=== PATIENT | female | born 1945 | race Caucasian/White ===

== ENCOUNTER 2016-06-23 01:53 | Inpatient (IN) | payer OTHER ==
[2016-06-23] VITALS (11 sets, daily range): BP systolic 90–202; BP diastolic 37–106
[~2016-06-23] VITALS: Ht 167.6 cm; Wt 90.3 kg
[~2016-06-23 01:53] MED LIST: ETOMIDATE (2MG/ML) 20ML VIAL IV ONE; SUCCINYLCHOLINE CHLORIDE 20 MG/ML 10ML VIAL IV ONE
[2016-06-23] MEDS ORDERED: MIDAZOLAM DRIP 100 mg/100mL NS 100 ML IV ONE (01:59)
[2016-06-23 02:15] LABS: Basophils # (auto) 0.1 uL; Basophils % (auto) 0.5 % (0.0-2.0); DEFINITIVE VIEW TRANSMISSION; Eosinophils # (auto) 0.2 uL; Lymphocytes # (auto) 6.5 uL; Lymphocytes % (auto) 33.6 % (10.0-50.0); Mean Corpuscular Hemoglobin 30.6 pg (28.0-32.0); Mean Corpuscular Hgb Conc. 31.3 g/dL (32.0-36.0); Mean Corpuscular Volume 97.8 fL (80.0-100.0); Mean Platelet Volume 12.8 fL (7.4-10.4); Monocytes # (auto) 0.6 uL; Monocytes % (auto) 2.9 % (0.0-12.0); Platelet Count (auto) 218 10^3/uL (140-450); SUSPECT VIEW TRANSMISSION; White Blood Cell 19.3 10^3/uL (4.4-10.8)
[2016-06-23 02:21] LABS: Urine Bilirubin Negative (Negative); Urine Blood TRACE /uL (Negative); Urine Color Colorless (Yellow); Urine Glucose TRACE mg/dL (Normal); Urine Ketone Negative (Negative); Urine Nitrite Negative (Negative); Urine RBC 12 /hpf (0 - 4); Urine Squamous Epithelial Cell FEW /hpf (<5); Urine Urobilinogen Normal (Negative); Urine pH 7.5 (5.0-8.0)
[2016-06-23 02:28] LABS: INR 0.98 (0.9-1.15); Partial Thromboplastin Time 25.1 sec (22.64-33.71); Prothrombin Time 10.1 sec (9.37-12.3)
[2016-06-23] MEDS ORDERED: SUCCINYLCHOLINE CHLORIDE 20 MG/ML 10ML VIAL IV ONE (02:30)
[2016-06-23] MEDS ORDERED: ETOMIDATE (2MG/ML) 20ML VIAL IV ONE (02:30)
[2016-06-23] MEDS ORDERED: MIDAZOLAM DRIP 100 mg/100mL NS 100 ML IV SCH ×2 (02:30→03:15)
[2016-06-23 02:38] LABS: Albumin 3.4 g/dL (3.4-5.0); BUN/Creatinine Ratio 16.6; Calcium 8.5 mg/dL (8.5-10.1); Potassium 3.8 mmol/L (3.5-5.1)
[2016-06-23 02:40] LABS: Bilirubin, Total 0.2 mg/dL (0.2-1.0); Total Protein 7.9 g/dL (6.4-8.2)
[2016-06-23] MEDS ORDERED: FUROSEMIDE 40 MG/4 ML VIAL IV ONE (03:30)
[2016-06-23] MEDS ORDERED: SODIUM BICARBONATE 8.4 % INJ 50ML VIAL IV ONE (03:30)
[2016-06-23] MEDS ORDERED: NITROGLYCERIN 2% OINT 1GM PKG TD ONE (03:30)
[2016-06-23 04:17] LABS: Temperature: 21.1 C (20.0-25.0)
[2016-06-23] MEDS ORDERED: InsuLIN REG 1unit/0.01ml Soln (100units/ml) SC ONE (05:30)
[2016-06-23] MEDS ORDERED: SIME80CH6 PO (06:19)
[2016-06-23] MEDS ORDERED: COLCPOW2 PO (06:22)
[2016-06-23] MEDS ORDERED: GABA-494 PO (06:22)
[2016-06-23] MEDS ORDERED: LEVO125T6 PO (06:23)
[2016-06-23] MEDS ORDERED: NAPR-476 PO (06:23)
[2016-06-23] MEDS ORDERED: DEXTROSE (50%) 50ML SYRG IV PRN (09:15)
[2016-06-23] MEDS ORDERED: ONDANSETRON HCL 4 MG/2 ML VIAL IV PRN (09:30)
[2016-06-23] MEDS ORDERED: cefTRIAXone 1GM/50ML D5W 50 ML IV ONE (09:30)
[2016-06-23] MEDS ORDERED: NITROGLYCERIN 0.4 MG SL TAB SL PRN (09:30)
[2016-06-23] MEDS ORDERED: VANCOMYCIN PER PHARMACY 0 MG IV SCH (09:30)
[2016-06-23] MEDS ORDERED: MORPHINE SULF INJ 2 MG/ML SYRINGE 1ML IV PRN (09:30)
[2016-06-23] MEDS ORDERED: ENOXAPARIN SOD 40 MG/0.4 ML SYRINGE SC SCH (10:00)
[2016-06-23] MEDS ORDERED: FAMOTIDINE (10MG/ML) 2ML VL IV SCH (10:00)
[2016-06-23] MEDS ORDERED: PANTOPRAZOLE SODIUM 40 MG/10 ML VIAL IV SCH (10:00)
[2016-06-23] MEDS: SODIUM CHLORIDE 0.9% 1,000 ML IV SCH ×2 (10:01→11:55)
[2016-06-23] MEDS: NOREPINEPHRINE BITARTRATE 250 ML IV ONE ×2 (11:17→11:32)
[2016-06-23] MEDS: NOREPINEPHRINE BITARTRATE 32 MG in D5W 5% 218 ML IV SCH (11:36)
[2016-06-23] MEDS: VANCOMYCIN 1GM/250ML D5W 250 ML IV SCH (11:48)
[2016-06-23] MEDS: ACCU-CHEK COMFORT CURVE STRIP VI SCH ×2 (11:55→18:21)
[2016-06-23] MEDS: InsuLIN REG 1unit/0.01ml Soln (100units/ml) SC SCH ×2 (11:56→18:00)
[2016-06-23] MEDS ORDERED: DOPamine 1600MCG/ML 250 ML IV SCH (12:45)
[2016-06-23] MEDS: ACETAMINOPHEN 650 MG RECT SUPP PR PRN (13:28)
[2016-06-23] MEDS ORDERED: FUROSEMIDE 20 MG/2 ML VIAL IV ONE (17:00)
[2016-06-23 18:02] LABS: Hematocrit 40.8 % (36.0-46.0); Hemoglobin 13.3 g/dL (12.2-16.2)
[2016-06-23] MEDS: MIDAZOLAM DRIP 100 mg/100mL NS 100 ML IV SCH (20:04)
[2016-06-23] MEDS: PANTOPRAZOLE SODIUM 40 MG/10 ML VIAL IV SCH (22:11)
[2016-06-24] VITALS (12 sets, daily range): BP systolic 97–161; BP diastolic 40–79
[2016-06-24] MEDS: ACCU-CHEK COMFORT CURVE STRIP VI SCH ×4 (00:11→18:10)
[2016-06-24] MEDS: InsuLIN REG 1unit/0.01ml Soln (100units/ml) SC SCH ×4 (00:14→18:12)
[2016-06-24 00:32] LABS: Hematocrit 40.8 % (36.0-46.0); Hemoglobin 13.1 g/dL (12.2-16.2)
[2016-06-24] MEDS: MIDAZOLAM DRIP 100 mg/100mL NS 100 ML IV SCH ×5 (02:35→22:21)
[2016-06-24] MEDS ORDERED: NOREPINEPHRINE BITARTRATE 250 ML IV ONE (02:35)
[2016-06-24] MEDS: NOREPINEPHRINE BITARTRATE 32 MG in D5W 5% 218 ML IV SCH (02:46)
[2016-06-24 04:11] LABS: Basophils # (auto) 0 uL; Basophils % (auto) 0.1 % (0.0-2.0); Eosinophils # (auto) 0 uL; Hematocrit 39.4 % (36.0-46.0); Hemoglobin 12.9 g/dL (12.2-16.2); Lymphocytes # (auto) 1.7 uL; Lymphocytes % (auto) 8.1 % (10.0-50.0); Mean Corpuscular Hgb Conc. 32.7 g/dL (32.0-36.0); Mean Corpuscular Volume 94.8 fL (80.0-100.0); Mean Platelet Volume 12.4 fL (7.4-10.4); Monocytes # (auto) 0.6 uL; Neutrophils # (auto) 19.1 uL; Neutrophils % (auto) 88.8 % (37.0-80.0); Platelet Count (auto) 172 10^3/uL (140-450); Red Cell Distribution Width 16.5 % (11.6-16.0); White Blood Cell 21.5 10^3/uL (4.4-10.8)
[2016-06-24 04:28] LABS: Albumin 2.7 g/dL (3.4-5.0); Bilirubin, Total 0.5 mg/dL (0.2-1.0); Calcium 8.1 mg/dL (8.5-10.1); Potassium 3.5 mmol/L (3.5-5.1); Total Protein 6.7 g/dL (6.4-8.2)
[2016-06-24] MEDS ORDERED: MIDAZOLAM HCL 5 MG/ML-1ML VIAL ONE (08:30)
[2016-06-24] MEDS ORDERED: fentaNYL CITRATE 100 MCG/2 ML VL ONE (08:30)
[2016-06-24] MEDS ORDERED: LIDOCAINE VISCOUS 2% 15ML UD ONE (08:30)
[2016-06-24] MEDS ORDERED: diphenhdrAMINE HCL 50 MG/1 ML VL ONE (08:30)
[2016-06-24] MEDS ORDERED: SODIUM CHLORIDE LOCK 0 ML ONE (08:30)
[2016-06-24] MEDS ORDERED: cefTRIAXone 1GM/50ML D5W 50 ML IV SCH (09:00)
[2016-06-24] MEDS: PROPOFOL 100 ML IV SCH (09:45)
[2016-06-24] MEDS: PANTOPRAZOLE SODIUM 40 MG/10 ML VIAL IV SCH ×2 (10:54→22:18)
[2016-06-24 11:53] LABS: Hematocrit 36.3 % (36.0-46.0); Hemoglobin 11.9 g/dL (12.2-16.2)
[2016-06-24] MEDS: VANCOMYCIN 1GM/250ML D5W 250 ML IV SCH (12:01)
[2016-06-24] MEDS ORDERED: DOPamine 1600MCG/ML 250 ML IV SCH (12:45)
[2016-06-24] MEDS ORDERED: DOPamine 1600MCG/ML 250 ML IV ONE (13:27)
[2016-06-24] MEDS: DOPamine 3200MCG/ML 250 ML IV SCH ×2 (14:25→14:36)
[2016-06-24] MEDS: SODIUM CHLORIDE 0.9% 1,000 ML IV SCH (14:26)
[2016-06-24] MEDS: PIPERACILLIN-TAZOB 3.375GM 100 ML IV SCH ×2 (16:00→22:02)
[2016-06-24 17:58] LABS: Hematocrit 35.2 % (36.0-46.0); Hemoglobin 11.5 g/dL (12.2-16.2)
[2016-06-24] MEDS ORDERED: LIDOCAINE 1% HCL (LOCAL ANESTH.) INJ 20ML MDV ID ONE (20:45)
[2016-06-24] MEDS: SODIUM CHLOR 0.9% PF (SALINE LOCK) 10ML VIAL IV SCH (22:18)
[2016-06-25] VITALS (84 sets, daily range): BP systolic 124–188; BP diastolic 47–97
[2016-06-25 01:00] LABS: Hematocrit 32.4 % (36.0-46.0); Hemoglobin 10.8 g/dL (12.2-16.2)
[2016-06-25] MEDS: InsuLIN REG 1unit/0.01ml Soln (100units/ml) SC SCH ×4 (02:11→18:00)
[2016-06-25] MEDS: ACCU-CHEK COMFORT CURVE STRIP VI SCH ×4 (02:11→18:22)
[2016-06-25] MEDS: SODIUM CHLORIDE 0.9% 1,000 ML IV SCH (02:36)
[2016-06-25] MEDS: PIPERACILLIN-TAZOB 3.375GM 100 ML IV SCH ×4 (03:00→21:27)
[2016-06-25 03:56] LABS: Hematocrit 31.5 % (36.0-46.0); Hemoglobin 10.4 g/dL (12.2-16.2)
[2016-06-25 03:58] LABS: Basophils # (auto) 0 uL; Basophils % (auto) 0.2 % (0.0-2.0); Eosinophils # (auto) 0.1 uL; Eosinophils % (auto) 0.8 % (0.0-7.0); Hematocrit 31.2 % (36.0-46.0); Hemoglobin 10.3 g/dL (12.2-16.2); Lymphocytes # (auto) 1.2 uL; Mean Corpuscular Hemoglobin 31.1 pg (28.0-32.0); Mean Corpuscular Hgb Conc. 32.8 g/dL (32.0-36.0); Mean Corpuscular Volume 94.8 fL (80.0-100.0); Mean Platelet Volume 11.6 fL (7.4-10.4); Monocytes # (auto) 0.3 uL; Monocytes % (auto) 2.5 % (0.0-12.0); Neutrophils # (auto) 10.1 uL; Neutrophils % (auto) 86.5 % (37.0-80.0); Platelet Count (auto) 122 10^3/uL (140-450); Red Cell Distribution Width 17.1 % (11.6-16.0); White Blood Cell 11.7 10^3/uL (4.4-10.8)
[2016-06-25 04:15] LABS: BUN/Creatinine Ratio 23.4; Calcium 7.7 mg/dL (8.5-10.1); Magnesium 1.8 mg/dL (1.6-2.6); Potassium 3.1 mmol/L (3.5-5.1)
[2016-06-25] MEDS ORDERED: Isosource 1.5 Cal 1 Liter GT SCH (10:00)
[2016-06-25] MEDS ORDERED: FUROSEMIDE 40 MG/4 ML VIAL IV ONE (10:00)
[2016-06-25] MEDS: SODIUM CHLOR 0.9% PF (SALINE LOCK) 10ML VIAL IV SCH ×2 (10:00→21:27)
[2016-06-25] MEDS ORDERED: POTASSIUM CHL 10% (20 MEQ/15ML) ORAL SOLN GT ONE (10:15)
[2016-06-25] MEDS: PANTOPRAZOLE SODIUM 40 MG/10 ML VIAL IV SCH ×2 (11:09→21:26)
[2016-06-25] MEDS: VANCOMYCIN 1GM/250ML D5W 250 ML IV SCH (11:13)
[2016-06-25] MEDS: NOREPINEPHRINE BITARTRATE 32 MG in D5W 5% 218 ML IV SCH (11:45)
[2016-06-25] MEDS: ASPirin 81 mg TAB PO SCH (14:05)
[2016-06-25] MEDS: ENOXAPARIN SOD 100 MG/1 ML SYRINGE SC SCH ×2 (14:08→21:27)
[2016-06-25 14:14] LABS: Hematocrit 32.6 % (36.0-46.0); Hemoglobin 10.4 g/dL (12.2-16.2)
[2016-06-25] MEDS: POTASSIUM CHL 10% (20 MEQ/15ML) ORAL SOLN GT SCH (21:27)
[2016-06-25] MEDS: ATORVASTATIN 20 MG TAB PO SCH (21:27)
[2016-06-25] MEDS: ACETAMINOPHEN 650 MG RECT SUPP PR PRN (21:57)
[2016-06-26] VITALS (105 sets, daily range): BP systolic 112–185; BP diastolic 44–82
[2016-06-26] MEDS: InsuLIN REG 1unit/0.01ml Soln (100units/ml) SC SCH ×4 (00:12→17:35)
[2016-06-26] MEDS: ACCU-CHEK COMFORT CURVE STRIP VI SCH ×4 (00:14→17:34)
[2016-06-26 00:56] LABS: Hematocrit 33.1 % (36.0-46.0); Hemoglobin 11.1 g/dL (12.2-16.2)
[2016-06-26] MEDS: PIPERACILLIN-TAZOB 3.375GM 100 ML IV SCH ×4 (03:00→21:28)
[2016-06-26] MEDS: SODIUM CHLORIDE 0.9% 1,000 ML IV SCH ×2 (03:29→13:18)
[2016-06-26] MEDS: PROPOFOL 100 ML IV SCH ×2 (04:29→09:15)
[2016-06-26 05:16] LABS: Basophils # (auto) 0 uL; Basophils % (auto) 0.2 % (0.0-2.0); Eosinophils # (auto) 0.2 uL; Eosinophils % (auto) 1.1 % (0.0-7.0); Hematocrit 34.2 % (36.0-46.0); Hemoglobin 11.4 g/dL (12.2-16.2); Lymphocytes # (auto) 0.9 uL; Lymphocytes % (auto) 6.9 % (10.0-50.0); Mean Corpuscular Hemoglobin 31.7 pg (28.0-32.0); Mean Corpuscular Hgb Conc. 33.2 g/dL (32.0-36.0); Mean Corpuscular Volume 95.6 fL (80.0-100.0); Monocytes # (auto) 0.4 uL; Monocytes % (auto) 3.2 % (0.0-12.0); Neutrophils % (auto) 88.6 % (37.0-80.0); Platelet Count (auto) 124 10^3/uL (140-450); Red Cell Distribution Width 17.2 % (11.6-16.0); White Blood Cell 13.6 10^3/uL (4.4-10.8)
[2016-06-26 05:35] LABS: Albumin 2.6 g/dL (3.4-5.0); BUN/Creatinine Ratio 20.1; Calcium 8.4 mg/dL (8.5-10.1); Potassium 3.5 mmol/L (3.5-5.1)
[2016-06-26 05:38] LABS: Bilirubin, Total 0.9 mg/dL (0.2-1.0); Total Protein 7.2 g/dL (6.4-8.2)
[2016-06-26] MEDS: MIDAZOLAM DRIP 100 mg/100mL NS 100 ML IV SCH (09:15)
[2016-06-26] MEDS: MORPHINE SULF INJ 2 MG/ML SYRINGE 1ML IV PRN ×2 (09:37→23:19)
[2016-06-26] MEDS: POTASSIUM CHL 10% (20 MEQ/15ML) ORAL SOLN GT SCH ×2 (09:49→21:28)
[2016-06-26] MEDS: ASPirin 81 mg TAB PO SCH (09:50)
[2016-06-26] MEDS: ENOXAPARIN SOD 100 MG/1 ML SYRINGE SC SCH ×2 (09:50→21:30)
[2016-06-26] MEDS: PANTOPRAZOLE SODIUM 40 MG/10 ML VIAL IV SCH ×2 (09:50→21:29)
[2016-06-26] MEDS: SODIUM CHLOR 0.9% PF (SALINE LOCK) 10ML VIAL IV SCH ×2 (10:12→21:29)
[2016-06-26 10:42] LABS: Hematocrit 31.9 % (36.0-46.0); Hemoglobin 10.7 g/dL (12.2-16.2)
[2016-06-26] MEDS: VANCOMYCIN 1GM/250ML D5W 250 ML IV SCH (11:29)
[2016-06-26] MEDS: NOREPINEPHRINE BITARTRATE 32 MG in D5W 5% 218 ML IV SCH (11:45)
[2016-06-26] MEDS: ACETAMINOPHEN 650 mg PER 20 mL UD NG PRN ×2 (16:11→23:20)
[2016-06-26 17:56] LABS: Hematocrit 31.7 % (36.0-46.0); Hemoglobin 10.5 g/dL (12.2-16.2)
[2016-06-26] MEDS: DOPamine 3200MCG/ML 250 ML IV SCH ×2 (20:00→21:27)
[2016-06-26] MEDS: ATORVASTATIN 20 MG TAB PO SCH (21:29)
[2016-06-27] VITALS (84 sets, daily range): BP systolic 101–214; BP diastolic 37–105
[2016-06-27 01:14] LABS: Hematocrit 31.5 % (36.0-46.0); Hemoglobin 10.2 g/dL (12.2-16.2)
[2016-06-27] MEDS: PIPERACILLIN-TAZOB 3.375GM 100 ML IV SCH ×4 (02:55→21:20)
[2016-06-27] MEDS: SODIUM CHLORIDE 0.9% 1,000 ML IV SCH (04:29)
[2016-06-27] MEDS: InsuLIN REG 1unit/0.01ml Soln (100units/ml) SC SCH ×5 (06:00→23:47)
[2016-06-27] MEDS: PROPOFOL 100 ML IV SCH (06:18)
[2016-06-27] MEDS: ACCU-CHEK COMFORT CURVE STRIP VI SCH ×5 (06:19→23:47)
[2016-06-27 06:21] LABS: Hematocrit 31.6 % (36.0-46.0); Hemoglobin 10.4 g/dL (12.2-16.2)
[2016-06-27 07:14] LABS: Albumin 2.3 g/dL (3.4-5.0); BUN/Creatinine Ratio 19.3; Calcium 8.2 mg/dL (8.5-10.1); Potassium 3.6 mmol/L (3.5-5.1)
[2016-06-27 07:17] LABS: Bilirubin, Total 0.6 mg/dL (0.2-1.0); Total Protein 6.8 g/dL (6.4-8.2)
[2016-06-27] MEDS: MIDAZOLAM DRIP 100 mg/100mL NS 100 ML IV SCH (09:15)
[2016-06-27] MEDS: ASPirin 81 mg TAB PO SCH (10:00)
[2016-06-27] MEDS: POTASSIUM CHL 10% (20 MEQ/15ML) ORAL SOLN GT SCH ×2 (10:00→21:20)
[2016-06-27] MEDS: SODIUM CHLOR 0.9% PF (SALINE LOCK) 10ML VIAL IV SCH ×2 (11:36→21:22)
[2016-06-27] MEDS: PANTOPRAZOLE SODIUM 40 MG/10 ML VIAL IV SCH ×2 (11:36→21:20)
[2016-06-27] MEDS: VANCOMYCIN 1GM/250ML D5W 250 ML IV SCH (11:37)
[2016-06-27] MEDS: ENOXAPARIN SOD 100 MG/1 ML SYRINGE SC SCH (11:37)
[2016-06-27] MEDS: NOREPINEPHRINE BITARTRATE 32 MG in D5W 5% 218 ML IV SCH (11:38)
[2016-06-27 12:16] LABS: Hematocrit 31.8 % (36.0-46.0); Hemoglobin 10.4 g/dL (12.2-16.2)
[2016-06-27] MEDS: DOPamine 3200MCG/ML 250 ML IV SCH (13:30)
[2016-06-27] MEDS ORDERED: ACETAMINOPHEN 650 mg PER 20 mL UD ONE (17:07)
[2016-06-27] MEDS ORDERED: ACETAMINOPHEN 650 mg PER 20 mL UD GT ONE (17:15)
[2016-06-27] MEDS ORDERED: LORazepam 2MG/ML-1ML VIAL ONE (18:09)
[2016-06-27] MEDS ORDERED: ENALAPRILAT 1.25 MG/ML-1ML VIAL IV PRN (19:15)
[2016-06-27] MEDS: ATORVASTATIN 20 MG TAB PO SCH (21:22)
[2016-06-28] VITALS (85 sets, daily range): BP systolic 108–242; BP diastolic 39–128
[2016-06-28 00:13] LABS: Hematocrit 32.1 % (36.0-46.0); Hemoglobin 10.4 g/dL (12.2-16.2)
[2016-06-28] MEDS: LORazepam 2MG/ML-1ML VIAL IV PRN ×3 (00:17→16:24)
[2016-06-28] MEDS: PIPERACILLIN-TAZOB 3.375GM 100 ML IV SCH ×4 (03:20→21:22)
[2016-06-28 05:40] LABS: Calcium 8.7 mg/dL (8.5-10.1); Potassium 3.7 mmol/L (3.5-5.1)
[2016-06-28 05:41] LABS: INR 1.04 (0.9-1.15); Partial Thromboplastin Time 29.1 sec (22.64-33.71); Prothrombin Time 10.7 sec (9.37-12.3)
[2016-06-28 05:43] LABS: BUN/Creatinine Ratio 18.2
[2016-06-28 05:51] LABS: Hematocrit 32.6 % (36.0-46.0); Hemoglobin 10.6 g/dL (12.2-16.2); Mean Corpuscular Hemoglobin 31.1 pg (28.0-32.0); Mean Corpuscular Hgb Conc. 32.4 g/dL (32.0-36.0); Mean Platelet Volume 9.9 fL (7.4-10.4); Platelet Count (auto) 112 10^3/uL (140-450); Red Cell Distribution Width 15.5 % (11.6-16.0); SUSPECT VIEW TRANSMISSION; White Blood Cell 12.7 10^3/uL (4.4-10.8)
[2016-06-28] MEDS: InsuLIN REG 1unit/0.01ml Soln (100units/ml) SC SCH ×4 (06:00→23:57)
[2016-06-28] MEDS ORDERED: SODIUM CHLORIDE 0.9% 1,000 ML IV SCH (06:00)
[2016-06-28] MEDS: ACCU-CHEK COMFORT CURVE STRIP VI SCH ×4 (06:31→23:57)
[2016-06-28 07:23] LABS: Metamyelocytes % 0; Myelocytes % 0; Promyelocytes % 0; Reactive Lymphocytes 0
[2016-06-28] MEDS ORDERED: LIDOCAINE 2%HCL (LOCAL ANESTH.) INJ 20ML MDV ONE (07:41)
[2016-06-28] MEDS ORDERED: IODIXANOL 320MG/ML 100ML BTL IV ONE (07:52)
[2016-06-28] MEDS ORDERED: MIDAZOLAM HCL 1MG/1ML-2 ML VIAL ONE (08:11)
[2016-06-28] MEDS ORDERED: SODIUM CHL 0.9% 0 ML ONE (08:12)
[2016-06-28] MEDS ORDERED: ANGIOMAX 250 MG VIAL IV ONE (08:12)
[2016-06-28] MEDS ORDERED: fentaNYL CITRATE 100 MCG/2 ML VL ONE (08:12)
[2016-06-28] MEDS ORDERED: EPTIFIBATIDE INJ (2MG/ML) 10ML VIAL IV ONE (08:32)
[2016-06-28 08:33] LABS: Platelet Estimate Decreased; RBC Morphology Normal
[2016-06-28] MEDS ORDERED: hydrALAZINE HCL 20 MG/ML VL ONE (08:39)
[2016-06-28] MEDS: SODIUM CHLOR 0.9% PF (SALINE LOCK) 10ML VIAL IV SCH ×2 (09:53→21:23)
[2016-06-28] MEDS: PANTOPRAZOLE SODIUM 40 MG/10 ML VIAL IV SCH ×2 (09:53→21:22)
[2016-06-28] MEDS: ASPirin 81 mg TAB PO SCH (09:53)
[2016-06-28] MEDS: POTASSIUM CHL 10% (20 MEQ/15ML) ORAL SOLN GT SCH ×2 (09:53→21:22)
[2016-06-28] MEDS: ENALAPRILAT 1.25 MG/ML-1ML VIAL IV PRN (12:15)
[2016-06-28] MEDS: VANCOMYCIN 1GM/250ML D5W 250 ML IV SCH (12:31)
[2016-06-28 12:59] LABS: Hematocrit 32.1 % (36.0-46.0); Hemoglobin 10.6 g/dL (12.2-16.2)
[2016-06-28] MEDS ORDERED: GABAPENTIN 100 MG CAP ONE (16:14)
[2016-06-28] MEDS ORDERED: GABAPENTIN 100 MG CAP PO ONE (16:30)
[2016-06-28] MEDS ORDERED: ACETAMINOPHEN 325 MG RECT SUPP PR ONE (18:02)
[2016-06-28] MEDS ORDERED: ACETAMINOPHEN 650 MG RECT SUPP PR PRN (18:15)
[2016-06-28] MEDS ORDERED: fentaNYL Drip 2500mCg/250mlNS 250 ML IV ONE (18:31)
[2016-06-28] MEDS ORDERED: fentaNYL Drip 2500mCg/250mlNS 250 ML IV SCH (18:31)
[2016-06-28 18:53] LABS: Hematocrit 31.5 % (36.0-46.0); Hemoglobin 10.3 g/dL (12.2-16.2)
[2016-06-28] MEDS: ATORVASTATIN 20 MG TAB PO SCH (21:23)
[2016-06-28] MEDS: GABAPENTIN 100 MG CAP PO SCH (21:23)
[2016-06-29] VITALS (68 sets, daily range): BP systolic 109–189; BP diastolic 45–110
[2016-06-29] MEDS: PIPERACILLIN-TAZOB 3.375GM 100 ML IV SCH ×4 (03:13→22:00)
[2016-06-29 04:15] LABS: Basophils # (auto) 0 uL; Basophils % (auto) 0.3 % (0.0-2.0); Eosinophils # (auto) 0.1 uL; Eosinophils % (auto) 0.6 % (0.0-7.0); Hematocrit 28.6 % (36.0-46.0); Hemoglobin 9.3 g/dL (12.2-16.2); Lymphocytes # (auto) 1.2 uL; Lymphocytes % (auto) 9.4 % (10.0-50.0); Mean Corpuscular Hemoglobin 31.1 pg (28.0-32.0); Mean Corpuscular Hgb Conc. 32.7 g/dL (32.0-36.0); Mean Corpuscular Volume 95.3 fL (80.0-100.0); Mean Platelet Volume 11.6 fL (7.4-10.4); Monocytes # (auto) 0.6 uL; Monocytes % (auto) 4.7 % (0.0-12.0); Neutrophils # (auto) 10.5 uL; Platelet Count (auto) 140 10^3/uL (140-450); Red Cell Distribution Width 16.9 % (11.6-16.0); White Blood Cell 12.4 10^3/uL (4.4-10.8)
[2016-06-29 04:52] LABS: BUN/Creatinine Ratio 17.4; Calcium 8.4 mg/dL (8.5-10.1); Magnesium 2.1 mg/dL (1.6-2.6); Potassium 3.8 mmol/L (3.5-5.1)
[2016-06-29] MEDS: InsuLIN REG 1unit/0.01ml Soln (100units/ml) SC SCH ×4 (06:00→18:30)
[2016-06-29] MEDS: ACCU-CHEK COMFORT CURVE STRIP VI SCH ×3 (06:33→18:22)
[2016-06-29] MEDS: ASPirin 81 mg TAB PO SCH (10:04)
[2016-06-29] MEDS: GABAPENTIN 100 MG CAP PO SCH ×2 (10:04→23:17)
[2016-06-29] MEDS: SODIUM CHLOR 0.9% PF (SALINE LOCK) 10ML VIAL IV SCH ×2 (10:04→23:16)
[2016-06-29] MEDS: PANTOPRAZOLE SODIUM 40 MG/10 ML VIAL IV SCH ×2 (10:04→23:16)
[2016-06-29] MEDS: POTASSIUM CHL 10% (20 MEQ/15ML) ORAL SOLN GT SCH ×2 (10:05→23:15)
[2016-06-29] MEDS: VANCOMYCIN 1GM/250ML D5W 250 ML IV SCH (11:00)
[2016-06-29 11:53] LABS: Hematocrit 30.9 % (36.0-46.0); Hemoglobin 10.1 g/dL (12.2-16.2)
[2016-06-29] MEDS ORDERED: LISINOPRIL 20 MG TAB PO ONE (15:15)
[2016-06-29 19:11] LABS: Hematocrit 31.4 % (36.0-46.0); Hemoglobin 10.4 g/dL (12.2-16.2)
[2016-06-29] MEDS: MORPHINE SULF INJ 2 MG/ML SYRINGE 1ML IV PRN (20:45)
[2016-06-29] MEDS: ATORVASTATIN 20 MG TAB PO SCH (23:17)
[2016-06-29] MEDS: CARVEDILOL 3.125 MG TAB PO SCH (23:17)
[2016-06-30] MEDS: ACCU-CHEK COMFORT CURVE STRIP VI SCH ×5 (00:19→23:37)
[2016-06-30] MEDS: ENALAPRILAT 1.25 MG/ML-1ML VIAL IV PRN ×3 (00:24→23:18)
[2016-06-30 01:56] LABS: Hematocrit 31.5 % (36.0-46.0); Hemoglobin 10.4 g/dL (12.2-16.2)
[2016-06-30] MEDS: PIPERACILLIN-TAZOB 3.375GM 100 ML IV SCH ×2 (03:00→08:42)
[2016-06-30] MEDS: MORPHINE SULF INJ 2 MG/ML SYRINGE 1ML IV PRN ×2 (03:39→19:03)
[2016-06-30 04:00] VITALS: BP 136/59
[2016-06-30] MEDS: InsuLIN REG 1unit/0.01ml Soln (100units/ml) SC SCH ×5 (06:00→23:38)
[2016-06-30 06:48] LABS: Hematocrit 31.9 % (36.0-46.0); Hemoglobin 10.4 g/dL (12.2-16.2)
[2016-06-30 07:08] LABS: BUN/Creatinine Ratio 16.8; Calcium 8.8 mg/dL (8.5-10.1); Potassium 3.8 mmol/L (3.5-5.1)
[2016-06-30 08:00] VITALS: BP 157/59
[2016-06-30] MEDS: PANTOPRAZOLE SODIUM 40 MG/10 ML VIAL IV SCH ×2 (09:55→21:48)
[2016-06-30] MEDS: ASPirin 81 mg TAB PO SCH (09:55)
[2016-06-30] MEDS: LISINOPRIL 20 MG TAB PO SCH (09:56)
[2016-06-30] MEDS: CARVEDILOL 3.125 MG TAB PO SCH ×2 (09:56→21:25)
[2016-06-30] MEDS: GABAPENTIN 100 MG CAP PO SCH ×2 (09:56→21:47)
[2016-06-30] MEDS: SODIUM CHLOR 0.9% PF (SALINE LOCK) 10ML VIAL IV SCH ×2 (09:57→21:56)
[2016-06-30] MEDS: POTASSIUM CHL 10% (20 MEQ/15ML) ORAL SOLN GT SCH (09:57)
[2016-06-30] MEDS: LORazepam 2MG/ML-1ML VIAL IV PRN (12:00)
[2016-06-30 12:17] VITALS: BP 156/65
[2016-06-30 12:35] LABS: Hematocrit 32.3 % (36.0-46.0); Hemoglobin 10.5 g/dL (12.2-16.2)
[2016-06-30] MEDS ORDERED: IBUP-781 PO (13:07)
[2016-06-30] MEDS ORDERED: FURO20TA3 PO (13:07)
[2016-06-30] MEDS ORDERED: [UNRECOGNIZED DRUG - CODE] PO (13:07)
[2016-06-30] MEDS ORDERED: SITA25TA3 PO (13:07)
[2016-06-30] MEDS ORDERED: METF-489 PO (13:07)
[2016-06-30] MEDS ORDERED: CLOP75TA41 PO (13:07)
[2016-06-30] MEDS ORDERED: LISI10TA6 PO (13:07)
[2016-06-30] MEDS ORDERED: INDO25CA PO (13:07)
[2016-06-30] MEDS ORDERED: MET50T PO (13:07)
[2016-06-30] MEDS ORDERED: ATEN-60 PO (13:08)
[2016-06-30 15:46] VITALS: BP 157/72
[2016-06-30 17:50] VITALS: BP 169/74
[2016-06-30 20:26] LABS: Hemoglobin 10.9 g/dL (12.2-16.2)
[2016-06-30] MEDS: ATORVASTATIN 20 MG TAB PO SCH (21:48)
[2016-06-30 22:00] VITALS: BP 135/66
[2016-07-01] VITALS (7 sets, daily range): BP systolic 118–171; BP diastolic 70–86
[2016-07-01] MEDS: ENALAPRILAT 1.25 MG/ML-1ML VIAL IV PRN ×2 (05:51→22:40)
[2016-07-01] MEDS: InsuLIN REG 1unit/0.01ml Soln (100units/ml) SC SCH ×3 (05:58→17:34)
[2016-07-01] MEDS: ACCU-CHEK COMFORT CURVE STRIP VI SCH ×3 (05:58→17:34)
[2016-07-01 06:49] LABS: Basophils # (auto) 0.1 uL; Basophils % (auto) 0.4 % (0.0-2.0); Eosinophils # (auto) 0.1 uL; Eosinophils % (auto) 0.8 % (0.0-7.0); Hematocrit 34.1 % (36.0-46.0); Hemoglobin 11.3 g/dL (12.2-16.2); Lymphocytes # (auto) 1.2 uL; Lymphocytes % (auto) 7.2 % (10.0-50.0); Mean Corpuscular Hemoglobin 30.9 pg (28.0-32.0); Mean Corpuscular Volume 93.7 fL (80.0-100.0); Monocytes # (auto) 0.5 uL; Monocytes % (auto) 3.1 % (0.0-12.0); Neutrophils # (auto) 14.5 uL; Neutrophils % (auto) 88.5 % (37.0-80.0); Platelet Count (auto) 250 10^3/uL (140-450); Red Cell Distribution Width 16.2 % (11.6-16.0); White Blood Cell 16.4 10^3/uL (4.4-10.8)
[2016-07-01 07:10] LABS: BUN/Creatinine Ratio 17.8; Calcium 8.5 mg/dL (8.5-10.1); Potassium 3.3 mmol/L (3.5-5.1)
[2016-07-01 10:01] LABS: B-Type Natriuretic Peptide 1221.81 pg/mL (0-100); Temperature: 22.5 C (20.0-25.0)
[2016-07-01] MEDS: ASPirin 81 mg TAB PO SCH (10:31)
[2016-07-01] MEDS: GABAPENTIN 100 MG CAP PO SCH ×2 (10:31→22:38)
[2016-07-01] MEDS: POTASSIUM CHL 20 Meq TABLET PO SCH (10:31)
[2016-07-01] MEDS: CARVEDILOL 3.125 MG TAB PO SCH ×2 (10:32→22:00)
[2016-07-01] MEDS: LISINOPRIL 20 MG TAB PO SCH (10:33)
[2016-07-01] MEDS: PANTOPRAZOLE SODIUM 40 MG/10 ML VIAL IV SCH (10:33)
[2016-07-01] MEDS: SODIUM CHLOR 0.9% PF (SALINE LOCK) 10ML VIAL IV SCH ×2 (10:34→22:24)
[2016-07-01] MEDS: MORPHINE SULF INJ 2 MG/ML SYRINGE 1ML IV PRN (10:49)
[2016-07-01] MEDS ORDERED: LEVOTHYROXINE SODIUM 50 MCG TAB PO ONE (13:00)
[2016-07-01] MEDS ORDERED: PIPERACILLIN-TAZOB 3.375GM 100 ML IV SCH (13:00)
[2016-07-01] MEDS ORDERED: POTASSIUM CHL 20 Meq TABLET PO ONE (14:00)
[2016-07-01] MEDS: PIPERACILLIN-TAZOB 3.375GM 100 ML IV SCH (20:51)
[2016-07-01] MEDS: ATORVASTATIN 20 MG TAB PO SCH (22:38)
[2016-07-01] MEDS: PANTOPRAZOLE 40 MG TAB PO SCH (22:39)
[2016-07-02] MEDS: ACCU-CHEK COMFORT CURVE STRIP VI SCH ×4 (00:25→18:06)
[2016-07-02] MEDS: MORPHINE SULF INJ 2 MG/ML SYRINGE 1ML IV PRN ×3 (01:59→22:35)
[2016-07-02] MEDS: PIPERACILLIN-TAZOB 3.375GM 100 ML IV SCH ×4 (03:27→20:48)
[2016-07-02 04:54] VITALS: BP 140/74
[2016-07-02 05:35] LABS: Basophils # (auto) 0.1 uL; Basophils % (auto) 0.4 % (0.0-2.0); Eosinophils # (auto) 0.2 uL; Eosinophils % (auto) 1.1 % (0.0-7.0); Hematocrit 35.1 % (36.0-46.0); Hemoglobin 11.7 g/dL (12.2-16.2); Lymphocytes # (auto) 1.1 uL; Mean Corpuscular Hemoglobin 31.1 pg (28.0-32.0); Mean Corpuscular Hgb Conc. 33.3 g/dL (32.0-36.0); Mean Corpuscular Volume 93.5 fL (80.0-100.0); Mean Platelet Volume 10.1 fL (7.4-10.4); Monocytes # (auto) 0.5 uL; Monocytes % (auto) 3.9 % (0.0-12.0); Neutrophils % (auto) 86.6 % (37.0-80.0); Platelet Count (auto) 309 10^3/uL (140-450); Red Cell Distribution Width 16.2 % (11.6-16.0); SUSPECT VIEW TRANSMISSION; White Blood Cell 13.9 10^3/uL (4.4-10.8)
[2016-07-02] MEDS: InsuLIN REG 1unit/0.01ml Soln (100units/ml) SC SCH ×4 (05:36→18:00)
[2016-07-02 05:54] LABS: BUN/Creatinine Ratio 17.2; Magnesium 1.9 mg/dL (1.6-2.6); Potassium 3.5 mmol/L (3.5-5.1)
[2016-07-02] MEDS: LEVOTHYROXINE SODIUM 50 MCG TAB PO SCH (06:47)
[2016-07-02 08:30] VITALS: BP 137/84
[2016-07-02] MEDS: CARVEDILOL 3.125 MG TAB PO SCH ×2 (10:00→22:00)
[2016-07-02] MEDS: SODIUM CHLOR 0.9% PF (SALINE LOCK) 10ML VIAL IV SCH ×2 (11:16→22:25)
[2016-07-02] MEDS: GABAPENTIN 100 MG CAP PO SCH ×2 (11:17→22:25)
[2016-07-02] MEDS: POTASSIUM CHL 20 Meq TABLET PO SCH (11:17)
[2016-07-02] MEDS: PANTOPRAZOLE 40 MG TAB PO SCH ×2 (11:17→22:26)
[2016-07-02] MEDS: ASPirin 81 mg TAB PO SCH (11:17)
[2016-07-02] MEDS: LISINOPRIL 20 MG TAB PO SCH (11:20)
[2016-07-02 12:30] VITALS: BP 160/76
[2016-07-02 17:04] VITALS: BP 153/69
[2016-07-02 21:14] VITALS: BP 140/60
[2016-07-02] MEDS: ATORVASTATIN 20 MG TAB PO SCH (22:25)
[2016-07-03] MEDS: ACCU-CHEK COMFORT CURVE STRIP VI SCH ×5 (00:20→23:54)
[2016-07-03] MEDS: PIPERACILLIN-TAZOB 3.375GM 100 ML IV SCH ×4 (03:17→21:44)
[2016-07-03 05:23] VITALS: BP 150/60
[2016-07-03] MEDS: InsuLIN REG 1unit/0.01ml Soln (100units/ml) SC SCH ×5 (06:00→23:53)
[2016-07-03 06:12] LABS: Basophils # (auto) 0 uL; Basophils % (auto) 0.2 % (0.0-2.0); Eosinophils # (auto) 0.2 uL; Eosinophils % (auto) 1.6 % (0.0-7.0); Hematocrit 34.7 % (36.0-46.0); Hemoglobin 11.4 g/dL (12.2-16.2); Lymphocytes # (auto) 1.1 uL; Lymphocytes % (auto) 7.6 % (10.0-50.0); Mean Corpuscular Hemoglobin 30.9 pg (28.0-32.0); Mean Corpuscular Hgb Conc. 32.9 g/dL (32.0-36.0); Mean Platelet Volume 10.8 fL (7.4-10.4); Monocytes # (auto) 0.4 uL; Monocytes % (auto) 2.5 % (0.0-12.0); Neutrophils # (auto) 12.8 uL; Neutrophils % (auto) 88.1 % (37.0-80.0); Platelet Count (auto) 353 10^3/uL (140-450); Red Cell Distribution Width 16.2 % (11.6-16.0); White Blood Cell 14.5 10^3/uL (4.4-10.8)
[2016-07-03] MEDS: LEVOTHYROXINE SODIUM 50 MCG TAB PO SCH (06:27)
[2016-07-03 06:30] LABS: Potassium 3.2 mmol/L (3.5-5.1)
[2016-07-03 06:34] LABS: BUN/Creatinine Ratio 14.8; Calcium 8.3 mg/dL (8.5-10.1)
[2016-07-03] MEDS: MORPHINE SULF INJ 2 MG/ML SYRINGE 1ML IV PRN (06:34)
[2016-07-03 06:37] LABS: Bilirubin, Total 0.3 mg/dL (0.2-1.0); Total Protein 6.6 g/dL (6.4-8.2)
[2016-07-03 09:25] VITALS: BP 146/61
[2016-07-03] MEDS: ASPirin 81 mg TAB PO SCH (09:25)
[2016-07-03] MEDS: GABAPENTIN 100 MG CAP PO SCH ×2 (09:25→21:45)
[2016-07-03] MEDS: POTASSIUM CHL 20 Meq TABLET PO SCH (09:25)
[2016-07-03] MEDS: SODIUM CHLOR 0.9% PF (SALINE LOCK) 10ML VIAL IV SCH ×2 (09:26→21:44)
[2016-07-03] MEDS: PANTOPRAZOLE 40 MG TAB PO SCH ×2 (09:26→21:45)
[2016-07-03] MEDS: CARVEDILOL 3.125 MG TAB PO SCH ×2 (09:26→21:35)
[2016-07-03] MEDS: LISINOPRIL 20 MG TAB PO SCH (10:00)
[2016-07-03] MEDS ORDERED: POTASSIUM CHL 10 Meq TABLET PO ONE (10:00)
[2016-07-03] MEDS ORDERED: ACETAMINOPHEN 325 MG TAB PO PRN (10:15)
[2016-07-03] MEDS ORDERED: HYDROcodone-ACET 5/325MG TAB PO PRN (10:15)
[2016-07-03] MEDS ORDERED: INDOMETHACIN 25 MG CAP PO ONE (10:30)
[2016-07-03 12:58] VITALS: BP 149/77
[2016-07-03] MEDS: INDOMETHACIN 25 MG CAP PO SCH ×2 (14:27→21:44)
[2016-07-03 16:35] VITALS: BP 138/61
[2016-07-03] MEDS: ATORVASTATIN 20 MG TAB PO SCH (21:45)
[2016-07-03 22:00] VITALS: BP 122/47
[2016-07-03 22:24] VITALS: BP 122/47
[2016-07-04] MEDS: PIPERACILLIN-TAZOB 3.375GM 100 ML IV SCH ×2 (03:44→09:19)
[2016-07-04 05:50] VITALS: BP 124/55
[2016-07-04 05:51] LABS: Basophils # (auto) 0 uL; Basophils % (auto) 0.4 % (0.0-2.0); Eosinophils # (auto) 0.2 uL; Eosinophils % (auto) 2.2 % (0.0-7.0); Lymphocytes # (auto) 1.4 uL; Lymphocytes % (auto) 13.7 % (10.0-50.0); Mean Corpuscular Hemoglobin 30.6 pg (28.0-32.0); Mean Corpuscular Hgb Conc. 32.3 g/dL (32.0-36.0); Mean Corpuscular Volume 94.9 fL (80.0-100.0); Mean Platelet Volume 10.6 fL (7.4-10.4); Monocytes # (auto) 0.4 uL; Neutrophils # (auto) 8.1 uL; Neutrophils % (auto) 79.7 % (37.0-80.0); Platelet Count (auto) 345 10^3/uL (140-450); Red Cell Distribution Width 16.4 % (11.6-16.0); White Blood Cell 10.1 10^3/uL (4.4-10.8)
[2016-07-04] MEDS: InsuLIN REG 1unit/0.01ml Soln (100units/ml) SC SCH ×3 (06:00→17:06)
[2016-07-04 06:05] LABS: Potassium 3.5 mmol/L (3.5-5.1)
[2016-07-04 06:16] LABS: Albumin 1.9 g/dL (3.4-5.0); BUN/Creatinine Ratio 15.7; Calcium 8.1 mg/dL (8.5-10.1)
[2016-07-04 06:19] LABS: Bilirubin, Total 0.2 mg/dL (0.2-1.0); Total Protein 6.6 g/dL (6.4-8.2)
[2016-07-04] MEDS: INDOMETHACIN 25 MG CAP PO SCH ×3 (06:41→21:34)
[2016-07-04] MEDS: LEVOTHYROXINE SODIUM 50 MCG TAB PO SCH (06:42)
[2016-07-04] MEDS: ACCU-CHEK COMFORT CURVE STRIP VI SCH ×3 (06:42→17:06)
[2016-07-04] MEDS: GABAPENTIN 100 MG CAP PO SCH ×2 (09:19→21:34)
[2016-07-04] MEDS: SODIUM CHLOR 0.9% PF (SALINE LOCK) 10ML VIAL IV SCH ×2 (09:19→21:34)
[2016-07-04] MEDS: POTASSIUM CHL 20 Meq TABLET PO SCH (09:19)
[2016-07-04] MEDS: LISINOPRIL 20 MG TAB PO SCH (09:21)
[2016-07-04] MEDS: PANTOPRAZOLE 40 MG TAB PO SCH ×2 (09:21→21:34)
[2016-07-04] MEDS: ASPirin 81 mg TAB PO SCH (09:21)
[2016-07-04] MEDS: CARVEDILOL 3.125 MG TAB PO SCH (09:22)
[2016-07-04 11:05] LABS: Temperature: 22.3 C (20.0-25.0)
[2016-07-04 13:13] VITALS: BP 137/55
[2016-07-04 13:15] VITALS: BP 124/55
[2016-07-04] MEDS ORDERED: metFORMIN HYDROCHLORIDE 500 MG TAB PO SCH ×2 (14:45→18:00)
[2016-07-04] MEDS ORDERED: CLOPIDOGREL BISULFATE 75 MG TAB PO SCH (14:45)
[2016-07-04] MEDS: DOXYCYCLINE 100 MG TAB PO SCH ×2 (15:03→21:34)
[2016-07-04] MEDS ORDERED: GAB100C PO (15:07)
[2016-07-04] MEDS ORDERED: LISI-646 PO (15:07)
[2016-07-04] MEDS ORDERED: PANT40T PO (15:07)
[2016-07-04] MEDS ORDERED: ASPI81CH43 PO (15:07)
[2016-07-04] MEDS ORDERED: POTA-167 PO (15:07)
[2016-07-04] MEDS ORDERED: METF-489 PO (15:07)
[2016-07-04] MEDS ORDERED: SITA25TA3 PO (15:07)
[2016-07-04] MEDS ORDERED: DOX100T PO (15:07)
[2016-07-04] MEDS ORDERED: ATEN-60 PO (15:07)
[2016-07-04] MEDS ORDERED: ATOR20TA50 PO (15:07)
[2016-07-04] MEDS ORDERED: LEV50T PO (15:07)
[2016-07-04 17:32] VITALS: BP 144/64
[2016-07-04 21:08] VITALS: BP 130/62
[2016-07-04] MEDS: ATORVASTATIN 20 MG TAB PO SCH (21:34)
[2016-07-04] MEDS ORDERED: CARVEDILOL 3.125 MG TAB PO SCH (22:00)
[2016-07-05] MEDS ORDERED: POTASSIUM CHL 10 Meq TABLET PO SCH (10:00)
[2016-07-05] MEDS ORDERED: ATENOLOL 25 MG TAB PO SCH (10:00)
== END 2016-07-04 22:22 | DRG 870 ==
LOC: EDBD 01:53 → ER 01:56 → TELE 01:57 → ICU WEST 06-25 03:11 → DOU IN ICU 06-29 19:36 → TELE-CENTR 06-30 17:54
PROVIDERS: ADMIT Internal Medicine; ATTEND Internal Medicine
PROC: 5A1955Z Respiratory Ventilation, Greater than 96 Consecutive Hours (ICD-10-PCS; 2016-06-23)
PROC: 0BH17EZ Insertion of Endotracheal Airway into Trachea, Via Natural or Artificial Opening (ICD-10-PCS; 2016-06-23)
PROC: 0DJ08ZZ Inspection of Upper Intestinal Tract, Via Natural or Artificial Opening Endoscopic (ICD-10-PCS; 2016-06-24)
PROC: 02HV33Z Insertion of Infusion Device into Superior Vena Cava, Percutaneous Approach (ICD-10-PCS; 2016-06-24)
PROC: 4A023N7 Measurement of Cardiac Sampling and Pressure, Left Heart, Percutaneous Approach (ICD-10-PCS; principal; 2016-06-28)
PROC: B2111ZZ Fluoroscopy of Multiple Coronary Arteries using Low Osmolar Contrast (ICD-10-PCS; 2016-06-28)
DX: A41.9 Sepsis, unspecified organism (principal); J69.0 Pneumonitis due to inhalation of food and vomit; J96.01 Acute respiratory failure with hypoxia; I50.43 Acute on chronic combined systolic (congestive) and diastolic (congestive) heart failure; I21.4 Non-ST elevation (NSTEMI) myocardial infarction; N17.0 Acute kidney failure with tubular necrosis; G93.41 Metabolic encephalopathy; E43 Unspecified severe protein-calorie malnutrition; G93.1 Anoxic brain damage, not elsewhere classified; I13.0 Hypertensive heart and chronic kidney disease with heart failure and stage 1 through stage 4 chronic kidney disease, or unspecified chronic kidney disease; Z99.11 Dependence on respirator [ventilator] status; N39.0 Urinary tract infection, site not specified; E11.22 Type 2 diabetes mellitus with diabetic chronic kidney disease; E11.21 Type 2 diabetes mellitus with diabetic nephropathy; N18.3 Chronic kidney disease, stage 3 (moderate); E11.65 Type 2 diabetes mellitus with hyperglycemia; M10.9 Gout, unspecified; E87.6 Hypokalemia; E03.9 Hypothyroidism, unspecified; D64.9 Anemia, unspecified; D69.6 Thrombocytopenia, unspecified; E11.40 Type 2 diabetes mellitus with diabetic neuropathy, unspecified; E66.01 Morbid (severe) obesity due to excess calories; I25.10 Atherosclerotic heart disease of native coronary artery without angina pectoris; Z79.82 Long term (current) use of aspirin; Z95.5 Presence of coronary angioplasty implant and graft; Z88.2 Allergy status to sulfonamides; Z68.32 Body mass index [BMI] 32.0-32.9, adult
CPT/HCPCS: 31500; 36415; 36600; 43235; 51702; 70450; 71010; 71250; 74176; 78582; 80048; 80053; 80061; 80202; 81001; 82010; 82570; 82607; 82746; 82805; 82962; 83036; 83605; 83735; 83880; 84300; 84439; 84443; 84484; 84702; 85007; 85014; 85018; 85025; 85027; 85379; 85610; 85730; 87040; 87070; 87081; 87086; 87205; 92610; 93005; 93306; 93458; 93970; 94002; 94003; 94640; 94660; 95819; 96365; 96366; 96375; 97001; 97110; 97116; 97530; 99152; 99291; C9113; J0330; J0696; J1265; J1815; J2250; J2405; J2543; J2704; J3010; J3490; J7060; Q9967

== ENCOUNTER 2018-04-12 20:15 | Emergency (ER) | payer OTHER ==
[~2018-04-12] VITALS: Ht 157.5 cm; Wt 68.0 kg
[~2018-04-12 20:15] MED LIST changes: +ASPI81CH43 PO; +ATEN-60 PO; +ATOR20TA50 PO; +CLOP75TA41 PO; +COLCPOW2 PO; +DOX100T PO; -ETOMIDATE (2MG/ML) 20ML VIAL IV ONE; +FURO20TA3 PO; +GAB100C PO; +GABA100C9 PO; +IBUP-781 PO; +INDO25CA14 PO; +LEV50T PO; +LEVO125T7 PO; +LISI-646 PO; +LISI10TA6 PO; +MET50T PO; +METF-489 PO; +NAPR-476 PO; +PANT40T PO; +POTA-167 PO; +SIME80CH6 PO; +SITA25TA3 PO; -SUCCINYLCHOLINE CHLORIDE 20 MG/ML 10ML VIAL IV ONE; +[UNRECOGNIZED DRUG - CODE] PO
[2018-04-12] MEDS ORDERED: ONDANSETRON HCL 4 MG/2 ML VIAL IV ONE (20:45)
[2018-04-12] MEDS ORDERED: MORPHINE SULFATE 4 MG/ML SYR/VIAL IV ONE (20:45)
[2018-04-12 21:16] LABS: Basophils # (auto) 0.1 uL; Basophils % (auto) 0.9 % (0.0-2.0); Eosinophils # (auto) 0.1 uL; Eosinophils % (auto) 1.3 % (0.0-7.0); Hematocrit 43.8 % (36.0-46.0); Hemoglobin 14.6 g/dL (12.2-16.2); Lymphocytes # (auto) 1.1 uL; Lymphocytes % (auto) 17.5 % (10.0-50.0); Mean Corpuscular Hemoglobin 31.5 pg (28.0-32.0); Mean Corpuscular Hgb Conc. 33.4 g/dL (32.0-36.0); Mean Corpuscular Volume 94.1 fL (80.0-100.0); Monocytes # (auto) 0.5 uL; Monocytes % (auto) 7.9 % (0.0-12.0); Neutrophils # (auto) 4.4 uL; Neutrophils % (auto) 72.4 % (37.0-80.0); Nucleated Red Blood Cells % 0.1 %; Platelet Count (auto) 184 10^3/uL (140-450); Red Blood Cells 4.65 10^6/uL (4.0-5.20); Red Cell Distribution Width 15.1 % (11.8-14.3)
[2018-04-12 21:30] LABS: Albumin 3.5 g/dL (3.4-5.0); Magnesium 2.2 mg/dL (1.6-2.6); Potassium 3.6 mmol/L (3.5-5.1)
[2018-04-12 21:35] LABS: BUN/Creatinine Ratio 33.9; Bilirubin, Total 0.3 mg/dL (0.2-1.0); Total Protein 7.6 g/dL (6.4-8.2)
[2018-04-13 01:31] VITALS: BP 101/43
[2018-04-13] MEDS ORDERED: ENOXAPARIN SOD 80 MG/0.8ML SYRINGE SC ONE (03:15)
[2018-04-13] MEDS ORDERED: MORPHINE SULFATE 4 MG/ML SYR/VIAL IV ONE (04:00)
[2018-04-13] MEDS ORDERED: ONDANSETRON HCL 4 MG/2 ML VIAL IV ONE (04:00)
== END 2018-04-13 04:44 | disposition home or self-care (01) ==
LOC: EDBD 20:15 → ER 20:24
DX: R51 Headache (principal); R79.89 Other specified abnormal findings of blood chemistry; I11.0 Hypertensive heart disease with heart failure; I50.9 Heart failure, unspecified; E11.9 Type 2 diabetes mellitus without complications; I25.2 Old myocardial infarction; E07.89 Other specified disorders of thyroid; Z90.89 Acquired absence of other organs; Z95.1 Presence of aortocoronary bypass graft
CPT/HCPCS: 36415; 70450; 80053; 83735; 84484; 85025; 94761; 96374; 96375; 99285; J2270; J2405

== ENCOUNTER 2022-09-04 07:51 | Inpatient (IN) | payer OTHER ==
[~2022-09-04] VITALS: Ht 170.2 cm; Wt 70.5 kg
[~2022-09-04 07:51] MED LIST changes: -CLOP75TA41 PO; +CLOP75TA70 PO; +FURO1TAB31 PO; -FURO20TA3 PO; -IBUP-781 PO; +IBUP400T23 PO; -INDO25CA14 PO; +INDO25CA18 PO; -LISI-646 PO; +LISI-716 PO; -LISI10TA6 PO; +LISI20TA28 PO
[2022-09-04] MEDS ORDERED: predniSONE 20 MG TAB PO ONE (08:45)
[2022-09-04 08:56] LABS: Basophils # (auto) 0.1 10 ^3/uL (0-0.2); Basophils % (auto) 0.9 % (0.0-2.0); Eosinophils # (auto) 0.1 10 ^3/uL (0-0.8); Eosinophils % (auto) 0.8 % (0.0-7.0); Hematocrit 42.1 % (36.0-46.0); Hemoglobin 13.8 g/dL (12.2-16.2); Lymphocytes # (auto) 1.2 10 ^3/uL (0.4-5.4); Lymphocytes % (auto) 13.9 % (10.0-50.0); Mean Corpuscular Hgb Conc. 32.7 g/dL (32.0-36.0); Mean Corpuscular Volume 91.9 fL (80.0-100.0); Monocytes # (auto) 0.6 10 ^3/uL (0-1.3); Monocytes % (auto) 7.1 % (0.0-12.0); Neutrophils # (auto) 6.9 10 ^3/uL (1.6-8.6); Neutrophils % (auto) 77.3 % (37.0-80.0); Nucleated Red Blood Cells % 0.1 %; Red Blood Cells 4.59 10^6/uL (4.0-5.20); Red Cell Distribution Width 15.5 % (11.8-14.3); White Blood Cell 8.9 10^3/uL (4.4-10.8)
[2022-09-04 09:11] LABS: Albumin 3.4 g/dL (3.4-5.0); Calcium 9.1 mg/dL (8.5-10.1); Magnesium 2.2 mg/dL (1.6-2.6); Potassium 3.4 mmol/L (3.5-5.1)
[2022-09-04 09:14] LABS: BUN/Creatinine Ratio 27.8; Bilirubin, Total 0.4 mg/dL (0.2-1.0); Total Protein 7.3 g/dL (6.4-8.2)
[2022-09-04] MEDS ORDERED: LACTATED RINGER'S 1,000 ML IV ONE (09:30)
[2022-09-04] MEDS ORDERED: HYDROcodone-ACET 5/325MG TAB PO ONE (11:15)
[2022-09-04] MEDS ORDERED: ASPirin 325 MG TAB PO ONE (11:15)
[2022-09-04] MEDS ORDERED: SENNA 8.6 MG TAB PO ONE (12:30)
[2022-09-04] MEDS ORDERED: DOCUSATE SOD 100 MG CAP PO ONE (12:30)
[2022-09-04] MEDS ORDERED: MILK OF MAGNESIA 30ML SUSP PO ONE (12:30)
[2022-09-04] MEDS ORDERED: FLEET ENEMA(ADULT) 135 ML PR ONE (12:30)
[2022-09-04] MEDS ORDERED: LACTULOSE 20Gm/30ML SOLN PO ONE (12:30)
[2022-09-04] MEDS ORDERED: NITROGLYCERIN 0.4 MG SL TAB SL PRN (17:00)
[2022-09-04] MEDS ORDERED: PANTOPRAZOLE 40 MG/10 ML VIAL INJ IV ONE (17:00)
[2022-09-04] MEDS ORDERED: MORPHINE SULFATE INJ 2 MG/ml SYRG IV PRN (17:00)
[2022-09-04] MEDS ORDERED: DEXTROSE (50%) 50ML SYRG IV PRN (17:30)
[2022-09-04] MEDS: ACCU-CHEK COMFORT CURVE STRIP VI SCH (22:00)
[2022-09-04] MEDS: GABAPENTIN 100 MG CAP PO SCH (22:00)
[2022-09-04] MEDS: LACTULOSE 20Gm/30ML SOLN PO SCH (22:43)
[2022-09-04] MEDS: InsuLIN REG 1unit/0.01ml Soln (100units/ml) SC SCH (22:43)
[2022-09-04] MEDS: COLCHICINE 0.6 MG CAP PO SCH (22:43)
[2022-09-04] MEDS: DOCUSATE SOD 100 MG CAP PO SCH (22:44)
[2022-09-04] MEDS: METOPROLOL TARTRATE 50 MG TAB PO SCH (22:46)
[2022-09-04] MEDS: ATORVASTATIN 20 MG TAB PO SCH (22:46)
[2022-09-05] MEDS ORDERED: ONDANSETRON HCL 4 MG/2 ML VIAL IV PRN (06:00)
[2022-09-05] MEDS ORDERED: ONDANSETRON HCL 4 MG/2 ML VIAL ONE (06:01)
[2022-09-05] MEDS ORDERED: PATIENTS OWN MEDICATION (Levothyroxine Sodium 125 MCG) PO SCH (07:00)
[2022-09-05] MEDS: ACCU-CHEK COMFORT CURVE STRIP VI SCH ×4 (07:50→23:07)
[2022-09-05] MEDS: InsuLIN REG 1unit/0.01ml Soln (100units/ml) SC SCH ×4 (07:50→22:00)
[2022-09-05 08:34] LABS: Basophils # (auto) 0.1 10 ^3/uL (0-0.2); Basophils % (auto) 0.9 % (0.0-2.0); Eosinophils # (auto) 0 10 ^3/uL (0-0.8); Eosinophils % (auto) 0.3 % (0.0-7.0); Hemoglobin 12.5 g/dL (12.2-16.2); Lymphocytes # (auto) 0.6 10 ^3/uL (0.4-5.4); Lymphocytes % (auto) 4.7 % (10.0-50.0); Mean Corpuscular Hgb Conc. 33.7 g/dL (32.0-36.0); Mean Corpuscular Volume 89.2 fL (80.0-100.0); Monocytes # (auto) 0.6 10 ^3/uL (0-1.3); Monocytes % (auto) 4.6 % (0.0-12.0); Neutrophils % (auto) 89.5 % (37.0-80.0); Nucleated Red Blood Cells % 0.1 %; Red Blood Cells 4.14 10^6/uL (4.0-5.20); Red Cell Distribution Width 15.5 % (11.8-14.3); White Blood Cell 12.3 10^3/uL (4.4-10.8)
[2022-09-05] MEDS: FUROSEMIDE 40 MG TAB PO SCH (08:39)
[2022-09-05] MEDS: LEVOTHYROXINE SODIUM 50 MCG TAB PO SCH (08:41)
[2022-09-05 08:53] LABS: Albumin 3.2 g/dL (3.4-5.0); Potassium 3.1 mmol/L (3.5-5.1)
[2022-09-05 08:59] LABS: BUN/Creatinine Ratio 28.7; Bilirubin, Total 0.5 mg/dL (0.2-1.0); Total Protein 6.7 g/dL (6.4-8.2)
[2022-09-05] MEDS: PANTOPRAZOLE 40 MG/10 ML VIAL INJ IV SCH (09:53)
[2022-09-05] MEDS: ASPirin 81 mg TAB PO SCH (09:53)
[2022-09-05] MEDS: LACTULOSE 20Gm/30ML SOLN PO SCH ×2 (09:53→23:04)
[2022-09-05] MEDS: DOCUSATE SOD 100 MG CAP PO SCH ×2 (09:54→23:05)
[2022-09-05] MEDS: COLCHICINE 0.6 MG CAP PO SCH ×2 (09:54→23:05)
[2022-09-05] MEDS: POTASSIUM EFFERVESENT TAB 25 MEQ PO SCH (09:55)
[2022-09-05] MEDS: METOPROLOL TARTRATE 50 MG TAB PO SCH ×2 (09:56→10:00)
[2022-09-05] MEDS: CLOPIDOGREL BISULFATE 75 MG TAB PO SCH (09:56)
[2022-09-05] MEDS: GABAPENTIN 100 MG CAP PO SCH ×2 (09:56→23:06)
[2022-09-05] MEDS: ENOXAPARIN SOD 40 MG/0.4 ML SYRINGE SC SCH (09:57)
[2022-09-05] MEDS ORDERED: POTASSIUM CHL 10 Meq TABLET PO SCH (10:00)
[2022-09-05] MEDS ORDERED: INDOMETHACIN 25 MG CAP PO SCH (10:00)
[2022-09-05] MEDS ORDERED: ATROPINE SULF 1 MG/10ml SYR IV PRN (12:45)
[2022-09-05] MEDS ORDERED: GLUCAGON EMERG KIT 1mg/1ml IV ONE (12:45)
[2022-09-05 22:00] VITALS: BP 128/50
[2022-09-05] MEDS ORDERED: DOCUSATE SOD 100 MG CAP PO PRN (23:00)
[2022-09-05] MEDS: ATORVASTATIN 20 MG TAB PO SCH (23:04)
[2022-09-05 23:50] LABS: Urine Bacteria NONE SEEN /hpf (None Seen); Urine Blood 3+ /uL (Negative); Urine Budding Yeast FEW /hpf (None Seen); Urine Hyaline Cast MOD /lpf (0 - 2); Urine Specific Gravity 1.017 (1.001-1.035); Urine WBC 93 /hpf (0 - 5)
[2022-09-06 05:00] VITALS: BP 106/42
[2022-09-06] MEDS: ACCU-CHEK COMFORT CURVE STRIP VI SCH ×4 (06:01→21:49)
[2022-09-06] MEDS: InsuLIN REG 1unit/0.01ml Soln (100units/ml) SC SCH ×4 (06:01→21:59)
[2022-09-06] MEDS: FUROSEMIDE 40 MG TAB PO SCH (06:02)
[2022-09-06] MEDS: LEVOTHYROXINE SODIUM 50 MCG TAB PO SCH (06:02)
[2022-09-06 06:22] LABS: Basophils # (auto) 0 10 ^3/uL (0-0.2); Basophils % (auto) 0.6 % (0.0-2.0); Eosinophils # (auto) 0 10 ^3/uL (0-0.8); Hematocrit 34.9 % (36.0-46.0); Hemoglobin 11.5 g/dL (12.2-16.2); Lymphocytes % (auto) 21.1 % (10.0-50.0); Mean Corpuscular Hemoglobin 30.4 pg (28.0-32.0); Mean Corpuscular Hgb Conc. 32.9 g/dL (32.0-36.0); Mean Corpuscular Volume 92.3 fL (80.0-100.0); Monocytes # (auto) 0.3 10 ^3/uL (0-1.3); Monocytes % (auto) 7.2 % (0.0-12.0); Neutrophils # (auto) 3.2 10 ^3/uL (1.6-8.6); Neutrophils % (auto) 70.1 % (37.0-80.0); Nucleated Red Blood Cells % 0.1 %; Red Blood Cells 3.78 10^6/uL (4.0-5.20); Red Cell Distribution Width 15.3 % (11.8-14.3); White Blood Cell 4.6 10^3/uL (4.4-10.8)
[2022-09-06 06:41] LABS: Calcium 8.9 mg/dL (8.5-10.1); Potassium 3.6 mmol/L (3.5-5.1)
[2022-09-06 09:00] VITALS: BP 130/44
[2022-09-06] MEDS: DOCUSATE SOD 100 MG CAP PO SCH ×2 (09:04→21:48)
[2022-09-06] MEDS: ENOXAPARIN SOD 40 MG/0.4 ML SYRINGE SC SCH (09:04)
[2022-09-06] MEDS: POTASSIUM EFFERVESENT TAB 25 MEQ PO SCH (09:04)
[2022-09-06] MEDS: LACTULOSE 20Gm/30ML SOLN PO SCH ×2 (09:04→21:47)
[2022-09-06] MEDS: PANTOPRAZOLE 40 MG/10 ML VIAL INJ IV SCH (09:04)
[2022-09-06] MEDS: COLCHICINE 0.6 MG CAP PO SCH ×2 (09:05→21:48)
[2022-09-06] MEDS: GABAPENTIN 100 MG CAP PO SCH ×2 (09:05→21:49)
[2022-09-06] MEDS: CLOPIDOGREL BISULFATE 75 MG TAB PO SCH (09:05)
[2022-09-06] MEDS: ASPirin 81 mg TAB PO SCH (09:05)
[2022-09-06 13:00] VITALS: BP 141/50
[2022-09-06 16:32] VITALS: BP 128/44
[2022-09-06 20:00] VITALS: BP 137/40
[2022-09-06 20:37] LABS: Basophils # (auto) 0 10 ^3/uL (0-0.2); Basophils % (auto) 0.7 % (0.0-2.0); Eosinophils # (auto) 0.1 10 ^3/uL (0-0.8); Eosinophils % (auto) 1.7 % (0.0-7.0); Hematocrit 36.2 % (36.0-46.0); Hemoglobin 11.8 g/dL (12.2-16.2); Lymphocytes # (auto) 0.9 10 ^3/uL (0.4-5.4); Lymphocytes % (auto) 18.8 % (10.0-50.0); Mean Corpuscular Hemoglobin 30.3 pg (28.0-32.0); Mean Corpuscular Hgb Conc. 32.6 g/dL (32.0-36.0); Mean Corpuscular Volume 92.9 fL (80.0-100.0); Monocytes # (auto) 0.4 10 ^3/uL (0-1.3); Monocytes % (auto) 7.1 % (0.0-12.0); Neutrophils # (auto) 3.6 10 ^3/uL (1.6-8.6); Neutrophils % (auto) 71.7 % (37.0-80.0); Nucleated Red Blood Cells % 0.1 %; Red Cell Distribution Width 15.5 % (11.8-14.3)
[2022-09-06 20:54] LABS: INR 0.97 (0.9-1.15)
[2022-09-06 21:13] VITALS: BP 137/40
[2022-09-06] MEDS: ATORVASTATIN 20 MG TAB PO SCH (21:48)
[2022-09-07] VITALS (10 sets, daily range): BP systolic 132–179; BP diastolic 43–93
[2022-09-07] MEDS: FUROSEMIDE 20 MG TAB PO SCH (06:42)
[2022-09-07] MEDS: LEVOTHYROXINE SODIUM 50 MCG TAB PO SCH (06:42)
[2022-09-07] MEDS: ACCU-CHEK COMFORT CURVE STRIP VI SCH ×4 (06:42→22:13)
[2022-09-07] MEDS: InsuLIN REG 1unit/0.01ml Soln (100units/ml) SC SCH ×4 (06:43→22:17)
[2022-09-07] MEDS: POTASSIUM EFFERVESENT TAB 25 MEQ PO SCH (10:00)
[2022-09-07] MEDS: CLOPIDOGREL BISULFATE 75 MG TAB PO SCH (10:17)
[2022-09-07] MEDS: DOCUSATE SOD 100 MG CAP PO SCH ×2 (10:17→21:13)
[2022-09-07] MEDS: ASPirin 81 mg TAB PO SCH (10:17)
[2022-09-07] MEDS: COLCHICINE 0.6 MG CAP PO SCH ×2 (10:17→21:13)
[2022-09-07] MEDS: PANTOPRAZOLE 40 MG TAB PO SCH (10:17)
[2022-09-07] MEDS: GABAPENTIN 100 MG CAP PO SCH ×2 (10:18→22:06)
[2022-09-07] MEDS: LACTULOSE 20Gm/30ML SOLN PO SCH ×2 (10:18→21:13)
[2022-09-07] MEDS ORDERED: VANCOMYCIN 1GM/250ML 250 ML IV ONE ×2 (15:28→15:30)
[2022-09-07] MEDS ORDERED: VANCOMYCIN PER PHARMACY 0 MG IV SCH (15:30)
[2022-09-07] MEDS ORDERED: VANCOMYCIN HCL 1000 MG VL ONE ×2 (16:31→17:46)
[2022-09-07] MEDS ORDERED: MIDAZOLAM HCL 2MG/2ML 2ml VIAL (1mg/ml) ONE (16:32)
[2022-09-07] MEDS ORDERED: LIDOCAINE 2%HCL (LOCAL ANESTH.) INJ 10ml MDV ONE (16:32)
[2022-09-07] MEDS ORDERED: fentaNYL CITRATE 100 MCG/2 ML VL ONE (16:32)
[2022-09-07] MEDS ORDERED: diphenhdrAMINE HCL 50 MG/1 ML VL ONE (16:41)
[2022-09-07] MEDS ORDERED: FAMOTIDINE (10MG/ML) 2ML VL IV ONE (16:41)
[2022-09-07] MEDS ORDERED: methylPREDNISolone SOD SUCC 125 MG/2 ML VL ONE (16:41)
[2022-09-07] MEDS ORDERED: LABETALOL HCL 5 MG/ML ML 20ML VIAL IV ONE (17:50)
[2022-09-07] MEDS: ceFAZolin 1GM/50ML 50 ML IV SCH (21:12)
[2022-09-07] MEDS: ATORVASTATIN 20 MG TAB PO SCH (21:13)
[2022-09-08] MEDS ORDERED: VANCOMYCIN 1GM/250ML 250 ML IV SCH (04:00)
[2022-09-08 05:00] VITALS: BP 156/60
[2022-09-08] MEDS: FUROSEMIDE 20 MG TAB PO SCH (06:50)
[2022-09-08] MEDS: LEVOTHYROXINE SODIUM 50 MCG TAB PO SCH (06:51)
[2022-09-08] MEDS: InsuLIN REG 1unit/0.01ml Soln (100units/ml) SC SCH ×4 (06:52→22:18)
[2022-09-08] MEDS: ACCU-CHEK COMFORT CURVE STRIP VI SCH ×4 (06:53→21:59)
[2022-09-08 09:00] VITALS: BP 154/61
[2022-09-08] MEDS: PANTOPRAZOLE 40 MG TAB PO SCH (10:00)
[2022-09-08] MEDS: ceFAZolin 1GM/50ML 50 ML IV SCH ×2 (10:41→21:59)
[2022-09-08] MEDS: DOCUSATE SOD 100 MG CAP PO SCH ×2 (10:43→21:59)
[2022-09-08] MEDS: GABAPENTIN 100 MG CAP PO SCH ×2 (10:43→21:59)
[2022-09-08] MEDS: ASPirin 81 mg TAB PO SCH (10:43)
[2022-09-08] MEDS: CLOPIDOGREL BISULFATE 75 MG TAB PO SCH (10:43)
[2022-09-08] MEDS: POTASSIUM EFFERVESENT TAB 25 MEQ PO SCH (10:44)
[2022-09-08] MEDS: COLCHICINE 0.6 MG CAP PO SCH ×2 (10:44→21:59)
[2022-09-08] MEDS: LACTULOSE 20Gm/30ML SOLN PO SCH ×2 (10:45→21:59)
[2022-09-08] MEDS ORDERED: DOXY-346 PO (12:32)
[2022-09-08] MEDS ORDERED: LACT10SO70 PO (12:36)
[2022-09-08 13:00] VITALS: BP 159/45
[2022-09-08 14:20] VITALS: BP 156/60
[2022-09-08 16:47] VITALS: BP 158/59
[2022-09-08 21:51] VITALS: BP 144/56
[2022-09-08] MEDS: ATORVASTATIN 20 MG TAB PO SCH (21:59)
[2022-09-09 04:59] VITALS: BP 146/57
[2022-09-09] MEDS: InsuLIN REG 1unit/0.01ml Soln (100units/ml) SC SCH ×4 (06:21→22:00)
[2022-09-09] MEDS: FUROSEMIDE 20 MG TAB PO SCH (06:21)
[2022-09-09] MEDS: ACCU-CHEK COMFORT CURVE STRIP VI SCH ×4 (06:21→22:00)
[2022-09-09] MEDS: LEVOTHYROXINE SODIUM 50 MCG TAB PO SCH (06:21)
[2022-09-09 09:09] VITALS: BP 154/62
[2022-09-09] MEDS: ceFAZolin 1GM/50ML 50 ML IV SCH ×2 (09:56→22:00)
[2022-09-09] MEDS: LACTULOSE 20Gm/30ML SOLN PO SCH ×2 (09:56→22:00)
[2022-09-09] MEDS: COLCHICINE 0.6 MG CAP PO SCH ×2 (09:57→22:00)
[2022-09-09] MEDS: ASPirin 81 mg TAB PO SCH (09:57)
[2022-09-09] MEDS: POTASSIUM EFFERVESENT TAB 25 MEQ PO SCH (09:57)
[2022-09-09] MEDS: GABAPENTIN 100 MG CAP PO SCH ×2 (09:57→22:00)
[2022-09-09] MEDS: DOCUSATE SOD 100 MG CAP PO SCH ×2 (09:57→22:00)
[2022-09-09] MEDS: PANTOPRAZOLE 40 MG TAB PO SCH (09:57)
[2022-09-09] MEDS: CLOPIDOGREL BISULFATE 75 MG TAB PO SCH (09:57)
[2022-09-09 13:00] VITALS: BP 171/108
[2022-09-09] MEDS: ACETAMINOPHEN 325 MG TAB PO PRN (16:42)
[2022-09-09 16:57] VITALS: BP 148/59
[2022-09-09] MEDS: ATORVASTATIN 20 MG TAB PO SCH (22:00)
[2022-09-10] MEDS: InsuLIN REG 1unit/0.01ml Soln (100units/ml) SC SCH ×4 (05:28→22:00)
[2022-09-10] MEDS: LEVOTHYROXINE SODIUM 50 MCG TAB PO SCH (05:58)
[2022-09-10] MEDS: FUROSEMIDE 20 MG TAB PO SCH (05:59)
[2022-09-10] MEDS: ACCU-CHEK COMFORT CURVE STRIP VI SCH ×4 (06:24→22:00)
[2022-09-10 09:00] VITALS: BP 178/89
[2022-09-10] MEDS: ACETAMINOPHEN 325 MG TAB PO PRN (09:02)
[2022-09-10] MEDS: DOCUSATE SOD 100 MG CAP PO SCH ×2 (10:00→21:41)
[2022-09-10] MEDS: POTASSIUM EFFERVESENT TAB 25 MEQ PO SCH (10:00)
[2022-09-10] MEDS: LACTULOSE 20Gm/30ML SOLN PO SCH ×2 (10:00→21:40)
[2022-09-10] MEDS: ASPirin 81 mg TAB PO SCH (10:25)
[2022-09-10] MEDS: ceFAZolin 1GM/50ML 50 ML IV SCH ×2 (10:26→21:40)
[2022-09-10] MEDS: COLCHICINE 0.6 MG CAP PO SCH ×2 (10:26→21:40)
[2022-09-10] MEDS: PANTOPRAZOLE 40 MG TAB PO SCH (10:26)
[2022-09-10] MEDS: CLOPIDOGREL BISULFATE 75 MG TAB PO SCH (10:26)
[2022-09-10] MEDS: GABAPENTIN 100 MG CAP PO SCH ×2 (12:08→21:41)
[2022-09-10 12:55] LABS: Basophils # (auto) 0 10 ^3/uL (0-0.2); Basophils % (auto) 0.7 % (0.0-2.0); Eosinophils # (auto) 0.2 10 ^3/uL (0-0.8); Eosinophils % (auto) 2.1 % (0.0-7.0); Hematocrit 42.2 % (36.0-46.0); Hemoglobin 13.7 g/dL (12.2-16.2); Lymphocytes # (auto) 0.8 10 ^3/uL (0.4-5.4); Lymphocytes % (auto) 11.1 % (10.0-50.0); Mean Corpuscular Hemoglobin 30.4 pg (28.0-32.0); Mean Corpuscular Hgb Conc. 32.6 g/dL (32.0-36.0); Mean Corpuscular Volume 93.2 fL (80.0-100.0); Monocytes # (auto) 0.2 10 ^3/uL (0-1.3); Monocytes % (auto) 3.4 % (0.0-12.0); Neutrophils # (auto) 5.8 10 ^3/uL (1.6-8.6); Neutrophils % (auto) 82.7 % (37.0-80.0); Nucleated Red Blood Cells % 0.1 %; Red Blood Cells 4.52 10^6/uL (4.0-5.20); Red Cell Distribution Width 15.1 % (11.8-14.3)
[2022-09-10 13:00] VITALS: BP 177/81
[2022-09-10 13:10] LABS: Albumin 3.1 g/dL (3.4-5.0); Calcium 8.6 mg/dL (8.5-10.1); Potassium 3.5 mmol/L (3.5-5.1)
[2022-09-10 13:13] LABS: BUN/Creatinine Ratio 26.6; Bilirubin, Total 0.4 mg/dL (0.2-1.0); Total Protein 6.9 g/dL (6.4-8.2)
[2022-09-10] MEDS ORDERED: HYDROcodone-ACET 5/325MG TAB PO PRN (13:45)
[2022-09-10 17:00] VITALS: BP 158/81
[2022-09-10] MEDS: ATORVASTATIN 20 MG TAB PO SCH (21:41)
[2022-09-10 22:00] VITALS: BP 157/97
[2022-09-11] MEDS: FUROSEMIDE 20 MG TAB PO SCH (05:51)
[2022-09-11] MEDS: LEVOTHYROXINE SODIUM 50 MCG TAB PO SCH (05:56)
[2022-09-11 05:58] VITALS: BP 158/96
[2022-09-11 06:11] LABS: Basophils # (auto) 0 10 ^3/uL (0-0.2); Basophils % (auto) 0.6 % (0.0-2.0); Eosinophils # (auto) 0.1 10 ^3/uL (0-0.8); Eosinophils % (auto) 1.8 % (0.0-7.0); Hematocrit 42.6 % (36.0-46.0); Lymphocytes # (auto) 0.8 10 ^3/uL (0.4-5.4); Lymphocytes % (auto) 10.8 % (10.0-50.0); Mean Corpuscular Hemoglobin 30.5 pg (28.0-32.0); Mean Corpuscular Hgb Conc. 32.8 g/dL (32.0-36.0); Mean Corpuscular Volume 92.9 fL (80.0-100.0); Monocytes # (auto) 0.4 10 ^3/uL (0-1.3); Monocytes % (auto) 5.7 % (0.0-12.0); Neutrophils # (auto) 5.9 10 ^3/uL (1.6-8.6); Neutrophils % (auto) 81.1 % (37.0-80.0); Nucleated Red Blood Cells % 0.1 %; Red Blood Cells 4.59 10^6/uL (4.0-5.20); Red Cell Distribution Width 15.6 % (11.8-14.3); White Blood Cell 7.2 10^3/uL (4.4-10.8)
[2022-09-11 06:27] LABS: Albumin 3.3 g/dL (3.4-5.0); Calcium 8.9 mg/dL (8.5-10.1); Potassium 3.7 mmol/L (3.5-5.1)
[2022-09-11] MEDS: InsuLIN REG 1unit/0.01ml Soln (100units/ml) SC SCH ×3 (06:27→17:00)
[2022-09-11] MEDS: ACCU-CHEK COMFORT CURVE STRIP VI SCH ×3 (06:28→18:45)
[2022-09-11 06:32] LABS: Bilirubin, Total 0.5 mg/dL (0.2-1.0); Total Protein 6.7 g/dL (6.4-8.2)
[2022-09-11 09:00] VITALS: BP 144/77
[2022-09-11] MEDS ORDERED: amLODIPine BESYLATE 5 MG TAB PO SCH (10:00)
[2022-09-11] MEDS ORDERED: ENOXAPARIN SOD 40 MG/0.4 ML SYRINGE SC SCH (10:00)
[2022-09-11] MEDS: ceFAZolin 1GM/50ML 50 ML IV SCH (11:18)
[2022-09-11] MEDS: COLCHICINE 0.6 MG CAP PO SCH (11:19)
[2022-09-11] MEDS: LACTULOSE 20Gm/30ML SOLN PO SCH (11:19)
[2022-09-11] MEDS: POTASSIUM EFFERVESENT TAB 25 MEQ PO SCH (11:20)
[2022-09-11] MEDS: CLOPIDOGREL BISULFATE 75 MG TAB PO SCH (11:20)
[2022-09-11] MEDS: ASPirin 81 mg TAB PO SCH ×2 (11:20→12:27)
[2022-09-11] MEDS: GABAPENTIN 100 MG CAP PO SCH (11:20)
[2022-09-11] MEDS: PANTOPRAZOLE 40 MG TAB PO SCH (11:24)
[2022-09-11] MEDS: DOCUSATE SOD 100 MG CAP PO SCH (11:25)
[2022-09-11 13:00] VITALS: BP 162/77
[2022-09-11 17:00] VITALS: BP 144/66
== END 2022-09-11 17:00 | DRG 242 ==
LOC: EDBD 07:51 → ER 07:51 → TELE 16:54 → TELE-WESTW 09-05 20:31
PROVIDERS: ADMIT Nurse Practitioner Family; ATTEND Internal Medicine
PROC: 0JH606Z Insertion of Pacemaker, Dual Chamber into Chest Subcutaneous Tissue and Fascia, Open Approach (ICD-10-PCS; principal; 2022-09-04)
PROC: 02H63JZ Insertion of Pacemaker Lead into Right Atrium, Percutaneous Approach (ICD-10-PCS; 2022-09-04)
PROC: 02HK3JZ Insertion of Pacemaker Lead into Right Ventricle, Percutaneous Approach (ICD-10-PCS; 2022-09-04)
DX: I49.5 Sick sinus syndrome (principal); I21.A1 Myocardial infarction type 2; I50.43 Acute on chronic combined systolic (congestive) and diastolic (congestive) heart failure; I13.0 Hypertensive heart and chronic kidney disease with heart failure and stage 1 through stage 4 chronic kidney disease, or unspecified chronic kidney disease; N17.9 Acute kidney failure, unspecified; N39.0 Urinary tract infection, site not specified; Z20.822 Contact with and (suspected) exposure to COVID-19; K56.41 Fecal impaction; E03.9 Hypothyroidism, unspecified; E11.22 Type 2 diabetes mellitus with diabetic chronic kidney disease; E11.65 Type 2 diabetes mellitus with hyperglycemia; E78.5 Hyperlipidemia, unspecified; F03.90 Unspecified dementia, unspecified severity, without behavioral disturbance, psychotic disturbance, mood disturbance, and anxiety; I25.10 Atherosclerotic heart disease of native coronary artery without angina pectoris; K57.30 Diverticulosis of large intestine without perforation or abscess without bleeding; K82.8 Other specified diseases of gallbladder; M10.9 Gout, unspecified; N18.31 Chronic kidney disease, stage 3a; I25.2 Old myocardial infarction; Z87.442 Personal history of urinary calculi; Z95.1 Presence of aortocoronary bypass graft
CPT/HCPCS: 33208; 36415; 71045; 74176; 80048; 80053; 81001; 82378; 82962; 83735; 83880; 84443; 84484; 85025; 85049; 85384; 85610; 86850; 86900; 86901; 87081; 87426; 93005; 96360; 97163; 99152; 99153; 99291; C1785; C9113; G0378; J0690; J1815; J2001; J2250; J2405; J3490